=== PATIENT | female | born 1985 | race Caucasian/White ===

== ENCOUNTER 2018-08-05 08:51 | Emergency (ER) | payer MEDICAID ==
[~2018-08-05] VITALS: Ht 162.6 cm; Wt 78.6 kg
[~2018-08-05 08:51] MED LIST: ONDA4TAB12 PO; ONDA4TAB6 PO; PHEN-716 PO; TRAZ-91 PO
[2018-08-05 09:17] LABS: URINE HCG NEGATIVE (NEG)
[2018-08-05 09:19] LABS: CLARITY,URINE CLOUDY (Clear); COLOR,URINE YELLOW (Yellow); GLUCOSE, URINE NEGATIVE (Neg); KETONES,URINE NEGATIVE (Neg); LEUKOCYTE ESTERASE ,URINE MODERATE (Neg); NITRITES, URINE POSITIVE (Neg); OCCULT BLOOD,URINE LARGE (Neg); PROTEIN,URINE NEGATIVE (Neg); UA COLLECTION TYPE CLN CATCH MIDSTREAM; UROBILINOGEN,URINE 0.2 E.U/dL (0.2-1.0)
[2018-08-05 09:27] LABS: BASOPHILS # (AUTO) 0.1 X10'3 (0-0.2); BASOPHILS % (AUTO) 0.3 % (0-1); EOSINOPHILS # (AUTO) 0.2 X10'3 (0-0.9); EOSINOPHILS % (AUTO) 1.3 % (0-6); HEMATOCRIT 41.7 % (35.0-45.0); LYMPHOCYTES # (AUTO) 1.5 X10'3 (1.1-4.8); LYMPHOCYTES % (AUTO) 8.9 % (21-51); MEAN CORPUSCULAR HEMOGLOBIN 28.5 PG (27.0-31.0); MEAN CORPUSCULAR HGB CONC 33.5 % (33.0-36.5); MEAN CORPUSCULAR VOLUME 85.1 FL (78-98); MEAN PLATELET VOLUME 8.1 FL (7.4-10.4); MONOCYTES # (AUTO) 0.8 X10'3 (0-0.9); MONOCYTES % (AUTO) 4.5 % (2-12); NEUTROPHILS # (AUTO) 14.8 X10'3 (1.8-7.7); PLATELET COUNT 485 X10'3 (140-440); RED BLOOD COUNT 4.91 X10'6 (4.20-5.60); WHITE BLOOD COUNT 17.4 X10'3 (4.5-11.0)
[2018-08-05 09:29] LABS: PROTHROMBIN TIME 10.5 SECONDS (9.0-12.0)
[2018-08-05 09:29] LABS: SQUAMOUS EPITHELIAL CELL,UR MANY /LPF (FEW)
[2018-08-05 09:30] LABS: BACTERIA,URINE 3+ /HPF (Neg); WBC,URINE 20-30 /HPF (0-4)
[2018-08-05 09:35] LABS: ALANINE AMINOTRANSFERASE 42 U/L (12-78); ALBUMIN 3.1 G/DL (3.4-5.0); ALBUMIN/GLOBULIN RATIO 0.6 (1.1-1.5); ALKALINE PHOSPHATASE 217 IU/L (46-116); ANION GAP 10 (8-16); ASPARTATE AMINO TRANSFERASE 19 U/L (10-37); BILIRUBIN,TOTAL 0.4 MG/DL (0.1-1.0); BLOOD UREA NITROGEN 11 MG/DL (7-18); BUN/CREATININE RATIO 13.6 (6.6-38.0); CALCIUM 8.9 MG/DL (8.5-10.1); CHLORIDE 101 MMOL/L (99-107); CREATININE 0.81 MG/DL (0.40-0.90); GLUCOSE 92 MG/DL (70-104); LIPASE 110 U/L (73-393); POTASSIUM 4.1 MMOL/L (3.5-5.1); SODIUM 137 MMOL/L (135-145); TOTAL CARBON DIOXIDE 26.1 MMOL/L (24-32); TOTAL PROTEIN 8.4 G/DL (6.4-8.2); eGFR 81 ML/MIN
[2018-08-05] MEDS ORDERED: ketorolac trometh inj. 60 MG/2 ML VIAL IM ONE (09:35)
[2018-08-05] MEDS ORDERED: ketorolac trometh. 30mg/ml inj. IV ONE (09:40)
[2018-08-05] MEDS ORDERED: CefTRIAXone/D5W-Rocephin 1gm 50 ML IV ONE (09:40)
[2018-08-05] MEDS ORDERED: normal saline 1000ml 1,000 ML IV ONE (09:55)
[2018-08-05] MEDS ORDERED: ondansetron/PF 4mg/2ml inj IV ONE (10:25)
[2018-08-05] MEDS ORDERED: morphine 4 MG/ML inj SYRINge IM ONE (10:25)
[2018-08-05 10:50] VITALS: BP 105/72
[2018-08-05] MEDS ORDERED: HYDROcodone/acetaminophen 5mg/325mg tablet PO ONE (11:30)
[2018-08-05] MEDS ORDERED: CEPH500C2 PO (11:31)
[2018-08-05] MEDS ORDERED: ONDA4TAB9 SL (11:31)
[2018-08-05] MEDS ORDERED: ACET-3067 PO (11:31)
== END 2018-08-05 12:00 | disposition home or self-care (01) ==
LOC: ER 08:51
DX: O86.21 Infection of kidney following delivery (principal); G89.29 Other chronic pain; Z90.49 Acquired absence of other specified parts of digestive tract; Z98.890 Other specified postprocedural states; Z88.8 Allergy status to other drugs, medicaments and biological substances; Z79.2 Long term (current) use of antibiotics; Z79.899 Other long term (current) drug therapy
CPT/HCPCS: 36415; 74176; 80053; 81001; 81025; 83690; 85025; 85610; 96365; 96366; 96372; 96375; 99285; J0696; J1885; J2270; J2405; J7030

== ENCOUNTER 2019-12-15 09:35 | Emergency (ER) | payer MEDICAID ==
[~2019-12-15] VITALS: Ht 162.6 cm; Wt 61.5 kg
[2019-12-15 10:13] LABS: BASOPHILS % (AUTO) 0.3 % (0-1); EOSINOPHILS # (AUTO) 0.1 X10'3 (0-0.9); EOSINOPHILS % (AUTO) 2.6 % (0-6); HEMATOCRIT 42.2 % (35.0-45.0); HEMOGLOBIN 14.4 g/dl (12.0-16.0); LYMPHOCYTES # (AUTO) 0.4 X10'3 (1.1-4.8); LYMPHOCYTES % (AUTO) 10.3 % (21-51); MEAN CORPUSCULAR HEMOGLOBIN 30.5 PG (27.0-31.0); MEAN CORPUSCULAR HGB CONC 34.1 g/dL (33.0-36.5); MEAN CORPUSCULAR VOLUME 89.3 FL (78-98); MEAN PLATELET VOLUME 9.4 FL (7.4-10.4); MONOCYTES # (AUTO) 0.7 X10'3 (0-0.9); MONOCYTES % (AUTO) 17.1 % (2-12); NEUTROPHILS # (AUTO) 2.9 X10'3 (1.8-7.7); NEUTROPHILS % (AUTO) 69.7 % (42-75); PLATELET COUNT 145 X10'3 (140-440); RED BLOOD COUNT 4.72 X10'6 (4.20-5.60); RED CELL DISTRIBUTION WIDTH 12.4 % (11.5-14.5); WHITE BLOOD COUNT 4.2 X10'3 (4.5-11.0)
[2019-12-15 10:14] LABS: CLARITY,URINE SLIGHTLY CLOUDY (Clear); COLOR,URINE YELLOW (Yellow); GLUCOSE, URINE NEGATIVE (Neg); KETONES,URINE NEGATIVE (Neg); LEUKOCYTE ESTERASE ,URINE SMALL (Neg); NITRITES, URINE NEGATIVE (Neg); OCCULT BLOOD,URINE NEGATIVE (Neg); PROTEIN,URINE NEGATIVE (Neg); UA COLLECTION TYPE CLN CATCH MIDSTREAM; UROBILINOGEN,URINE 0.2 E.U/dL (0.2-1.0)
[2019-12-15 10:15] LABS: URINE HCG NEGATIVE (NEG)
[2019-12-15 10:25] LABS: ALANINE AMINOTRANSFERASE 25 U/L (12-78); ALBUMIN/GLOBULIN RATIO 1.2 (1.1-1.5); ALKALINE PHOSPHATASE 95 IU/L (46-116); ANION GAP 9 (8-16); ASPARTATE AMINO TRANSFERASE 17 U/L (10-37); BILIRUBIN,TOTAL 0.2 MG/DL (0.1-1.0); BLOOD UREA NITROGEN 5 MG/DL (7-18); BUN/CREATININE RATIO 7.1 (6.6-38.0); CHLORIDE 105 MMOL/L (99-107); GLUCOSE 98 MG/DL (70-104); LIPASE 108 U/L (73-393); MUCUS STRANDS FEW /LPF (Neg); POTASSIUM 4.1 MMOL/L (3.5-5.1); SODIUM 138 MMOL/L (135-145); SQUAMOUS EPITHELIAL CELL,UR MANY /LPF (FEW); TOTAL PROTEIN 7.4 G/DL (6.4-8.2); eGFR > 90 ML/MIN
[2019-12-15 10:26] LABS: BACTERIA,URINE 2+ /HPF (Neg); RBC,URINE 0-2 /HPF (0-2)
[2019-12-15] MEDS ORDERED: ondansetron/PF 4mg/2ml inj IV ONE (10:40)
[2019-12-15] MEDS ORDERED: morphine 4 MG/ML inj SYRINge IV ONE (10:40)
[2019-12-15] MEDS ORDERED: normal saline 1000ml 1,000 ML IV ONE (10:40)
[2019-12-15 10:45] LABS: TOTAL CELLS COUNTED 100
[2019-12-15 10:46] LABS: LARGE PLATELETS FEW; PLATELET ESTIMATE NORMAL
--- NOTE | 2019-12-15 11:02 | NUR ---
ATTEMPTING IV AT THE BEDSIDE
[2019-12-15] MEDS ORDERED: iohexol 300mg/ml 100ml inj. ONE (11:04)
--- NOTE | 2019-12-15 11:17 | NUR ---
PATIENT WENT TO CT
[2019-12-15 13:35] VITALS: BP 107/66
== END 2019-12-15 13:37 | disposition home or self-care (01) ==
LOC: ER 09:36
DX: K59.00 Constipation, unspecified (principal); R10.31 Right lower quadrant pain; R50.9 Fever, unspecified; G89.29 Other chronic pain; Z87.442 Personal history of urinary calculi; Z90.49 Acquired absence of other specified parts of digestive tract; Z98.890 Other specified postprocedural states; Z88.8 Allergy status to other drugs, medicaments and biological substances; Z79.899 Other long term (current) drug therapy
CPT/HCPCS: 36415; 74177; 80053; 81001; 81025; 83690; 85025; 96374; 96375; 99284; J2270; J2405; J7030; Q9967

== ENCOUNTER 2020-05-18 17:41 | Emergency (ER) | payer MEDICAID ==
[~2020-05-18] VITALS: Ht 162.6 cm; Wt 65.0 kg
[2020-05-18 18:19] LABS: URINE HCG NEGATIVE (NEG)
[2020-05-18 18:20] LABS: CLARITY,URINE CLOUDY (Clear); COLOR,URINE YELLOW (Yellow); GLUCOSE, URINE NEGATIVE (Neg); KETONES,URINE TRACE mg/dl (Neg); LEUKOCYTE ESTERASE ,URINE NEGATIVE (Neg); NITRITES, URINE NEGATIVE (Neg); OCCULT BLOOD,URINE NEGATIVE (Neg); PROTEIN,URINE NEGATIVE (Neg); UA COLLECTION TYPE CLN CATCH MIDSTREAM
[2020-05-18] MEDS ORDERED: ketorolac tromethamine 15mg/ml inj. IV ONE (18:20)
[2020-05-18] MEDS ORDERED: ondansetron/PF 4mg/2ml inj IV ONE (18:20)
[2020-05-18] MEDS ORDERED: normal saline 1000ML IV soln IVB ONE (18:20)
[2020-05-18 18:30] LABS: SQUAMOUS EPITHELIAL CELL,UR MANY /LPF (FEW)
[2020-05-18 18:31] LABS: BACTERIA,URINE 2+ /HPF (Neg); RBC,URINE 0-2 /HPF (0-2); WBC,URINE 0-4 /HPF (0-4)
[2020-05-18 18:40] LABS: BASOPHILS % (AUTO) 0.5 % (0-1); EOSINOPHILS % (AUTO) 0.5 % (0-6); HEMATOCRIT 40.4 % (35.0-45.0); HEMOGLOBIN 13.5 g/dl (12.0-16.0); MEAN CORPUSCULAR HGB CONC 33.5 g/dL (33.0-36.5); MEAN CORPUSCULAR VOLUME 92.6 FL (78-98); MEAN PLATELET VOLUME 9.7 FL (7.4-10.4); MONOCYTES # (AUTO) 0.3 X10'3 (0-0.9); MONOCYTES % (AUTO) 4.5 % (2-12); NEUTROPHILS # (AUTO) 5.1 X10'3 (1.8-7.7); NEUTROPHILS % (AUTO) 67.5 % (42-75); PLATELET COUNT 184 X10'3 (140-440); RED BLOOD COUNT 4.37 X10'6 (4.20-5.60); RED CELL DISTRIBUTION WIDTH 13.9 % (11.5-14.5); WHITE BLOOD COUNT 7.6 X10'3 (4.5-11.0)
[2020-05-18 18:54] LABS: ALANINE AMINOTRANSFERASE 17 U/L (12-78); ALBUMIN 3.8 G/DL (3.4-5.0); ALKALINE PHOSPHATASE 92 IU/L (46-116); ANION GAP 10 (8-16); ASPARTATE AMINO TRANSFERASE 16 U/L (10-37); BILIRUBIN,TOTAL 0.4 MG/DL (0.1-1.0); BLOOD UREA NITROGEN 8 MG/DL (7-18); BUN/CREATININE RATIO 9.9 (6.6-38.0); CALCIUM 8.8 MG/DL (8.5-10.1); CHLORIDE 104 MMOL/L (99-107); CREATININE 0.81 MG/DL (0.40-0.90); GLUCOSE 102 MG/DL (70-104); POTASSIUM 3.5 MMOL/L (3.5-5.1); SODIUM 139 MMOL/L (135-145); TOTAL CARBON DIOXIDE 25.2 MMOL/L (24-32); TOTAL PROTEIN 7.5 G/DL (6.4-8.2); eGFR 80 ML/MIN
[2020-05-18] MEDS ORDERED: morphine 2 MG/ML inj. syringe IV PRN (19:15)
[2020-05-18] MEDS ORDERED: morphine 4 MG/ML inj SYRINge IV ONE (20:20)
[2020-05-18] MEDS ORDERED: HYDR-4383 PO (21:14)
[2020-05-18 21:28] VITALS: BP 103/67
== END 2020-05-18 21:56 | disposition home or self-care (01) ==
LOC: ER 17:41
DX: R10.32 Left lower quadrant pain (principal); G89.29 Other chronic pain; Z88.8 Allergy status to other drugs, medicaments and biological substances; Z79.899 Other long term (current) drug therapy
CPT/HCPCS: 36415; 76700; 76856; 80053; 81001; 81025; 85025; 93976; 96374; 96375; 99285; J1885; J2270; J2405; J7030; 96376

== ENCOUNTER 2021-06-04 11:54 | Inpatient (IN) | payer MEDICAID ==
[~2021-06-04] VITALS: Ht 162.6 cm; Wt 55.0 kg
[~2021-06-04 11:54] MED LIST changes: +HYDR-4383 PO
[2021-06-04 13:09] LABS: URINE HCG NEGATIVE (NEG)
[2021-06-04 13:26] LABS: CLARITY,URINE CLOUDY (Clear); COLOR,URINE STRAW (Yellow); GLUCOSE, URINE NEGATIVE (Neg); KETONES,URINE NEGATIVE (Neg); LEUKOCYTE ESTERASE ,URINE SMALL (Neg); NITRITES, URINE POSITIVE (Neg); OCCULT BLOOD,URINE TRACE-INTACT (Neg); PROTEIN,URINE TRACE mg/dl (Neg)
[2021-06-04 13:32] LABS: UA COLLECTION TYPE CLN CATCH MIDSTREAM
[2021-06-04 13:36] LABS: SQUAMOUS EPITHELIAL CELL,UR MANY /LPF (FEW)
[2021-06-04 13:37] LABS: MUCUS STRANDS MODERATE /LPF (Neg)
[2021-06-04 13:38] LABS: TRANSITIONAL EPI CELLS,URINE MODERATE /HPF
[2021-06-04 13:39] LABS: BACTERIA,URINE 4+ /HPF (Neg)
[2021-06-04 13:41] LABS: RBC,URINE 0-2 /HPF (0-2); WBC CLUMPS,URINE FEW /HPF (NEGATIVE)
--- NOTE | 2021-06-04 13:45 | NUR ---
urine rejected for culture.
[2021-06-04] MEDS ORDERED: acetaminophen 325mg tablet PO STA (14:31)
[2021-06-04] MEDS ORDERED: CefTRIAXone 2gm/D5W 50ml BAG 50 ML IV ONE (14:35)
[2021-06-04] MEDS ORDERED: normal saline 1000ML IV soln IV ONE (14:35)
[2021-06-04] MEDS ORDERED: ondansetron/PF 4mg/2ml inj IV ONE ×2 (14:35→19:35)
[2021-06-04 15:10] LABS: EOSINOPHILS % (AUTO) 0.1 % (0-6); NEUTROPHILS # (AUTO) 13.5 X10'3 (1.8-7.7); NEUTROPHILS % (AUTO) 82.9 % (42-75)
[2021-06-04 15:11] LABS: BASOPHILS # (AUTO) 0.1 X10'3 (0-0.2); BASOPHILS % (AUTO) 0.3 % (0-1); HEMATOCRIT 38.3 % (35.0-45.0); LYMPHOCYTES # (AUTO) 1.2 X10'3 (1.1-4.8); LYMPHOCYTES % (AUTO) 7.4 % (21-51); MEAN CORPUSCULAR HEMOGLOBIN 30.4 PG (27.0-31.0); MEAN CORPUSCULAR HGB CONC 33.8 g/dL (33.0-36.5); MEAN CORPUSCULAR VOLUME 89.9 FL (78-98); MEAN PLATELET VOLUME 9.8 FL (7.4-10.4); MONOCYTES # (AUTO) 1.5 X10'3 (0-0.9); MONOCYTES % (AUTO) 9.3 % (2-12); PLATELET COUNT 185 X10'3 (140-440); RED BLOOD COUNT 4.27 X10'6 (4.20-5.60); WHITE BLOOD COUNT 16.3 X10'3 (4.5-11.0)
[2021-06-04 15:27] LABS: ALANINE AMINOTRANSFERASE 15 U/L (12-78); ALBUMIN 3.4 G/DL (3.4-5.0); ALBUMIN/GLOBULIN RATIO 0.8 (1.1-1.5); ALKALINE PHOSPHATASE 85 IU/L (46-116); ANION GAP 12 (8-16); ASPARTATE AMINO TRANSFERASE 10 U/L (10-37); BILIRUBIN,TOTAL 0.5 MG/DL (0.1-1.0); BLOOD UREA NITROGEN 7 MG/DL (7-18); BUN/CREATININE RATIO 10.1 (6.6-38.0); CALCIUM 8.7 MG/DL (8.5-10.1); CHLORIDE 102 MMOL/L (99-107); CREATININE 0.69 MG/DL (0.40-0.90); GLUCOSE 89 MG/DL (70-104); MAGNESIUM 1.8 MG/DL (1.5-2.4); POTASSIUM 3.1 MMOL/L (3.5-5.1); SODIUM 139 MMOL/L (135-145); TOTAL CARBON DIOXIDE 25.5 MMOL/L (24-32); TOTAL PROTEIN 7.6 G/DL (6.4-8.2); eGFR > 90 ML/MIN
[2021-06-04] MEDS: morphine 4 MG/ML inj SYRINge IV PRN ×4 (15:31→23:41)
[2021-06-04] MEDS ORDERED: POTASSIUM BICARB 20meq eff tab 20 MEQ TABLET.EFF PO ONE (17:25)
[2021-06-04] MEDS ORDERED: ALBU8HFA PO (18:21)
--- NOTE | 2021-06-04 18:36 | NUR ---
Pt requeting to eat, denies nausea, per MD Puente ok to eat. Meal tray provided.
[2021-06-04] MEDS ORDERED: ondansetron 4mg rapidly disintigrating tab PO PRN (20:45)
[2021-06-04] MEDS ORDERED: diphenhydrAMINE 50 mg/ml inj IV PRN (20:45)
[2021-06-04] MEDS ORDERED: magnesium hydroxide 30ml (MOM) UD suspension PO PRN (20:45)
[2021-06-04] MEDS ORDERED: diphenhydrAMINE 25mg capsule PO PRN (20:45)
[2021-06-04] MEDS ORDERED: acetaminophen 325mg tablet PO PRN (20:45)
[2021-06-04] MEDS ORDERED: morphine 2 MG/ML inj. syringe IV PRN (20:45)
[2021-06-04] MEDS ORDERED: mag hydrox/Alum hydrox/simeth 30ml oral suspension PO PRN (20:45)
[2021-06-04] MEDS ORDERED: bisacodyl 10mg suppository rectal RC PRN (20:45)
[2021-06-04] MEDS ORDERED: HYDROcodone/acetaminophen 5mg/325mg tablet PO PRN (20:45)
[2021-06-04] MEDS ORDERED: acetaminophen 650mg rectal suppository RC PRN (20:45)
[2021-06-04] MEDS ORDERED: potassium Cl 20 mEq SR tablet PO PRN ×2 (20:55)
[2021-06-04] MEDS: acetaminophen 325mg tablet PO PRN (20:59)
[2021-06-04] MEDS: dextrose 5%-1/2 normal saline 1,000 ML IV SCH (21:19)
[2021-06-04 21:22] LABS: CREATINE KINASE 38 U/L (26-192); LIPASE 89 U/L (73-393); PHOSPHORUS 3.8 MG/DL (2.3-4.5)
[2021-06-04 21:27] LABS: PARTIAL THROMBOPLASTIN TIME 38 SECONDS (22-32)
[2021-06-04] MEDS: K, MAG and/or Phos replacement - Verify level? MC SCH (21:45)
--- NOTE | 2021-06-04 22:31 | NUR ---
pt laying R. lateral, bp as noted, temp re-assessed at 102 oral, pt. requesting more applesauce and would like to sleep. RN notified
[2021-06-04] MEDS ORDERED: acetaminophen 1,000mg/100ml IV 100 ML IV ONE (22:45)
[2021-06-04] MEDS ORDERED: acetaminophen 1,000mg/100ml IV 50 ML IV ONE (23:20)
--- NOTE | 2021-06-04 23:32 | NUR ---
pt eating jello, 2 apple sauce, 2 orange juice and drinking 500 ml water past 3 hours. Pt urinate 400 ml urine yellow clear
[2021-06-05 00:30] LABS: URINE AMPHETAMINE SCREEN NEGATIVE (Neg); URINE BARBITUATE SCREEN NEGATIVE (Neg); URINE BENZODIAZEPINES SCREEN NEGATIVE (Neg); URINE CANNABINOID SCREEN NEGATIVE (Neg); URINE COCAINE SCREEN NEGATIVE (Neg); URINE METHADONE SCREEN NEGATIVE (Neg); URINE OPIATE SCREEN POSITIVE (Neg); URINE PHENCYCLIDINE SCREEN NEGATIVE (Neg)
--- NOTE | 2021-06-05 01:06 | NUR ---
Md Morris called and notified BP 83/49. Vrbal order LR 500ml bolus then recheck BP, if BP below 90/60, finish the 1L bag
[2021-06-05] MEDS ORDERED: ringers solution, lactated 500ml IV solution IV ONE (01:15)
--- NOTE | 2021-06-05 01:35 | NUR ---
pt output urine 800ml
[2021-06-05] MEDS: morphine 4 MG/ML inj SYRINge IV PRN ×2 (03:08→05:56)
--- NOTE | 2021-06-05 05:50 | NUR ---
PT IN 08/19 PAIN, REQUESTING PAIN MEDICAITON. PER LABS K OF 3.1 WILL START REPLACEMENT PER PROTOCOL.
[2021-06-05] MEDS: ondansetron/PF 4mg/2ml inj IV PRN ×2 (05:56→21:09)
[2021-06-05 07:42] LABS: BASOPHILS % (AUTO) 0.3 % (0-1); EOSINOPHILS # (AUTO) 0.1 X10'3 (0-0.9); EOSINOPHILS % (AUTO) 0.5 % (0-6); HEMATOCRIT 31.3 % (35.0-45.0); HEMOGLOBIN 10.4 g/dl (12.0-16.0); LYMPHOCYTES # (AUTO) 1.2 X10'3 (1.1-4.8); LYMPHOCYTES % (AUTO) 10.1 % (21-51); MEAN CORPUSCULAR HEMOGLOBIN 30.4 PG (27.0-31.0); MEAN CORPUSCULAR HGB CONC 33.1 g/dL (33.0-36.5); MEAN CORPUSCULAR VOLUME 91.9 FL (78-98); MEAN PLATELET VOLUME 9.7 FL (7.4-10.4); MONOCYTES # (AUTO) 1.7 X10'3 (0-0.9); MONOCYTES % (AUTO) 14.6 % (2-12); NEUTROPHILS # (AUTO) 8.8 X10'3 (1.8-7.7); NEUTROPHILS % (AUTO) 74.5 % (42-75); PLATELET COUNT 129 X10'3 (140-440); RED BLOOD COUNT 3.41 X10'6 (4.20-5.60); RED CELL DISTRIBUTION WIDTH 14.2 % (11.5-14.5); WHITE BLOOD COUNT 11.8 X10'3 (4.5-11.0)
[2021-06-05 07:55] LABS: ALANINE AMINOTRANSFERASE 20 U/L (12-78); ALBUMIN 2.4 G/DL (3.4-5.0); ALBUMIN/GLOBULIN RATIO 0.7 (1.1-1.5); ALKALINE PHOSPHATASE 129 IU/L (46-116); ANION GAP 9 (8-16); ASPARTATE AMINO TRANSFERASE 15 U/L (10-37); BILIRUBIN,TOTAL 0.4 MG/DL (0.1-1.0); BLOOD UREA NITROGEN 4 MG/DL (7-18); BUN/CREATININE RATIO 6.2 (6.6-38.0); CALCIUM 7.7 MG/DL (8.5-10.1); CHLORIDE 106 MMOL/L (99-107); CREATININE 0.65 MG/DL (0.40-0.90); GLUCOSE 119 MG/DL (70-104); POTASSIUM 3.7 MMOL/L (3.5-5.1); SODIUM 139 MMOL/L (135-145); TOTAL CARBON DIOXIDE 23.6 MMOL/L (24-32); TOTAL PROTEIN 5.9 G/DL (6.4-8.2); eGFR > 90 ML/MIN
[2021-06-05] MEDS: K, MAG and/or Phos replacement - Verify level? MC SCH (08:00)
[2021-06-05] MEDS: heparin, porcine 5000 units/ml vial SQ SCH ×2 (08:00→19:14)
[2021-06-05 09:00] VITALS: BP 96/61
[2021-06-05] MEDS: nicotine 21mg patch - 24 hr TD SCH (09:40)
[2021-06-05] MEDS: HYDROcodone/acetaminophen 10/325mg tab PO PRN ×3 (09:40→21:10)
[2021-06-05] MEDS: docusate sod 100mg capsule PO SCH ×2 (09:41→19:14)
[2021-06-05] MEDS: pantoprazole 40mg Tablet.DR PO SCH (09:41)
[2021-06-05] MEDS: dextrose 5%-1/2 normal saline 1,000 ML IV SCH ×2 (09:41→17:48)
[2021-06-05 12:03] VITALS: BP 98/55
[2021-06-05] MEDS: HYDROmorphone inj. 0.5 MG/0.5 ML DISP.SYRIN IV PRN ×3 (13:54→23:47)
[2021-06-05] MEDS: CefTRIAXone/D5W-Rocephin 1gm 50 ML IV SCH (14:50)
[2021-06-05 18:00] VITALS: BP 109/60
--- NOTE | 2021-06-05 18:00 | NUR ---
Patient in room [facility]. I have received report from KALEB Bond and had the opportunity to ask questions and assume patient care.
[2021-06-05] MEDS: temazepam 15mg capsule PO PRN ×2 (21:13→23:47)
[2021-06-05 23:54] VITALS: BP 93/63
[2021-06-06] MEDS: dextrose 5%-1/2 normal saline 1,000 ML IV SCH ×3 (03:05→22:40)
[2021-06-06] MEDS: HYDROmorphone inj. 0.5 MG/0.5 ML DISP.SYRIN IV PRN ×4 (04:54→22:09)
--- NOTE | 2021-06-06 05:48 | NUR ---
Per lab, CMP hemolyzed. Will come to floor to redraw.
--- NOTE | 2021-06-06 06:16 | NUR ---
Problems reprioritized. Patient report given, questions answered & plan of care reviewed with KALEB Bond.
[2021-06-06 07:03] LABS: ALANINE AMINOTRANSFERASE 46 U/L (12-78); ALBUMIN 2.1 G/DL (3.4-5.0); ALBUMIN/GLOBULIN RATIO 0.6 (1.1-1.5); ALKALINE PHOSPHATASE 142 IU/L (46-116); ANION GAP 8 (8-16); ASPARTATE AMINO TRANSFERASE 33 U/L (10-37); BILIRUBIN,TOTAL 0.4 MG/DL (0.1-1.0); BLOOD UREA NITROGEN 5 MG/DL (7-18); BUN/CREATININE RATIO 8.3 (6.6-38.0); CALCIUM 7.6 MG/DL (8.5-10.1); CHLORIDE 108 MMOL/L (99-107); GLUCOSE 122 MG/DL (70-104); POTASSIUM 3.7 MMOL/L (3.5-5.1); SODIUM 141 MMOL/L (135-145); TOTAL CARBON DIOXIDE 24.9 MMOL/L (24-32); TOTAL PROTEIN 5.6 G/DL (6.4-8.2); eGFR > 90 ML/MIN
[2021-06-06] MEDS: nicotine 21mg patch - 24 hr TD SCH (07:21)
[2021-06-06] MEDS: docusate sod 100mg capsule PO SCH ×2 (07:22→20:09)
[2021-06-06] MEDS: heparin, porcine 5000 units/ml vial SQ SCH ×2 (07:22→20:00)
[2021-06-06] MEDS: HYDROcodone/acetaminophen 10/325mg tab PO PRN ×3 (07:22→19:11)
[2021-06-06] MEDS: pantoprazole 40mg Tablet.DR PO SCH (07:23)
[2021-06-06 07:38] VITALS: BP 88/49
[2021-06-06 09:44] LABS: BASOPHILS % (AUTO) 0.5 % (0-1); EOSINOPHILS # (AUTO) 0.2 X10'3 (0-0.9); EOSINOPHILS % (AUTO) 2.4 % (0-6); HEMATOCRIT 30.2 % (35.0-45.0); HEMOGLOBIN 10.1 g/dl (12.0-16.0); LYMPHOCYTES # (AUTO) 2.2 X10'3 (1.1-4.8); LYMPHOCYTES % (AUTO) 26.3 % (21-51); MEAN CORPUSCULAR HEMOGLOBIN 29.9 PG (27.0-31.0); MEAN CORPUSCULAR HGB CONC 33.4 g/dL (33.0-36.5); MEAN CORPUSCULAR VOLUME 89.5 FL (78-98); MONOCYTES % (AUTO) 11.3 % (2-12); NEUTROPHILS % (AUTO) 59.5 % (42-75); PLATELET COUNT 128 X10'3 (140-440); RED BLOOD COUNT 3.37 X10'6 (4.20-5.60); RED CELL DISTRIBUTION WIDTH 14.3 % (11.5-14.5); WHITE BLOOD COUNT 8.5 X10'3 (4.5-11.0)
[2021-06-06 11:00] VITALS: BP 110/69
[2021-06-06 12:31] VITALS: BP 110/69
[2021-06-06] MEDS: CefTRIAXone/D5W-Rocephin 1gm 50 ML IV SCH (14:36)
[2021-06-06] MEDS: acetaminophen 325mg tablet PO PRN (16:08)
[2021-06-06 18:00] VITALS: BP 110/56
[2021-06-06] MEDS: lactobacillus rhamnosus 10,000 MMU CELLS/CAPSULE PO SCH (20:09)
[2021-06-06] MEDS: temazepam 15mg capsule PO PRN (22:40)
[2021-06-06 23:00] VITALS: BP 107/64
[2021-06-07] MEDS: HYDROmorphone inj. 0.5 MG/0.5 ML DISP.SYRIN IV PRN ×4 (04:49→19:41)
[2021-06-07 05:59] LABS: BASOPHILS % (AUTO) 0.3 % (0-1); EOSINOPHILS # (AUTO) 0.2 X10'3 (0-0.9); EOSINOPHILS % (AUTO) 2.8 % (0-6); HEMATOCRIT 31.6 % (35.0-45.0); HEMOGLOBIN 10.5 g/dl (12.0-16.0); LYMPHOCYTES # (AUTO) 2.4 X10'3 (1.1-4.8); MEAN CORPUSCULAR HEMOGLOBIN 30.6 PG (27.0-31.0); MEAN CORPUSCULAR HGB CONC 33.2 g/dL (33.0-36.5); MEAN CORPUSCULAR VOLUME 92.2 FL (78-98); MEAN PLATELET VOLUME 10.5 FL (7.4-10.4); MONOCYTES # (AUTO) 0.8 X10'3 (0-0.9); MONOCYTES % (AUTO) 9.8 % (2-12); NEUTROPHILS # (AUTO) 4.4 X10'3 (1.8-7.7); NEUTROPHILS % (AUTO) 56.1 % (42-75); PLATELET COUNT 140 X10'3 (140-440); RED BLOOD COUNT 3.43 X10'6 (4.20-5.60); RED CELL DISTRIBUTION WIDTH 14.8 % (11.5-14.5); WHITE BLOOD COUNT 7.9 X10'3 (4.5-11.0)
[2021-06-07 06:04] LABS: ALANINE AMINOTRANSFERASE 70 U/L (12-78); ALBUMIN 2.2 G/DL (3.4-5.0); ALBUMIN/GLOBULIN RATIO 0.6 (1.1-1.5); ALKALINE PHOSPHATASE 178 IU/L (46-116); ANION GAP 9 (8-16); ASPARTATE AMINO TRANSFERASE 48 U/L (10-37); BILIRUBIN,TOTAL 0.3 MG/DL (0.1-1.0); BLOOD UREA NITROGEN 6 MG/DL (7-18); BUN/CREATININE RATIO 10.9 (6.6-38.0); CALCIUM 8.2 MG/DL (8.5-10.1); CHLORIDE 106 MMOL/L (99-107); CREATININE 0.55 MG/DL (0.40-0.90); GLUCOSE 89 MG/DL (70-104); POTASSIUM 3.6 MMOL/L (3.5-5.1); SODIUM 142 MMOL/L (135-145); TOTAL CARBON DIOXIDE 27.2 MMOL/L (24-32); TOTAL PROTEIN 5.9 G/DL (6.4-8.2); eGFR > 90 ML/MIN
[2021-06-07 07:00] VITALS: BP 96/61
[2021-06-07] MEDS: nicotine 21mg patch - 24 hr TD SCH ×2 (08:00→10:14)
[2021-06-07] MEDS: ondansetron/PF 4mg/2ml inj IV PRN ×2 (08:37→19:37)
[2021-06-07] MEDS: docusate sod 100mg capsule PO SCH ×2 (08:38→19:32)
[2021-06-07] MEDS: heparin, porcine 5000 units/ml vial SQ SCH ×2 (08:38→19:34)
[2021-06-07] MEDS: lactobacillus rhamnosus 10,000 MMU CELLS/CAPSULE PO SCH ×2 (08:38→19:32)
[2021-06-07] MEDS: pantoprazole 40mg Tablet.DR PO SCH (08:47)
[2021-06-07] MEDS: morphine 2 MG/ML inj. syringe IV PRN ×2 (08:50→13:05)
[2021-06-07] MEDS: dextrose 5%-1/2 normal saline 1,000 ML IV SCH ×2 (10:10→21:01)
[2021-06-07 11:00] VITALS: BP 115/64
[2021-06-07] MEDS: acetaminophen 325mg tablet PO PRN (13:05)
[2021-06-07] MEDS: CefTRIAXone/D5W-Rocephin 1gm 50 ML IV SCH (14:24)
--- NOTE | 2021-06-07 16:09 | NUR ---
Dr. Melendrez paged regarding patient request for Ibuprofen for migraine. Patient states she takes Ibuprofen at home and it is effective for headaches.
[2021-06-07] MEDS: ibuprofen 200mg tablet PO PRN (16:30)
[2021-06-07 18:00] VITALS: BP 91/56
--- NOTE | 2021-06-07 18:00 | NUR ---
Problems reprioritized. Patient report given to Justen MANUEL, questions answered & plan of care reviewed with .
--- NOTE | 2021-06-07 18:29 | NUR ---
Patient in room [facility]. I have received report from KALEB Siddiqui and had the opportunity to ask questions and assume patient care.
[2021-06-07] MEDS: temazepam 15mg capsule PO PRN (21:00)
[2021-06-07] MEDS: HYDROcodone/acetaminophen 10/325mg tab PO PRN (22:30)
[2021-06-08] VITALS: BP 98/55
[2021-06-08] MEDS: HYDROmorphone inj. 0.5 MG/0.5 ML DISP.SYRIN IV PRN ×2 (00:51→08:11)
[2021-06-08] MEDS: dextrose 5%-1/2 normal saline 1,000 ML IV SCH ×2 (04:45→08:24)
[2021-06-08 06:00] LABS: BASOPHILS % (AUTO) 0.6 % (0-1); EOSINOPHILS # (AUTO) 0.3 X10'3 (0-0.9); EOSINOPHILS % (AUTO) 4.3 % (0-6); HEMATOCRIT 32.9 % (35.0-45.0); HEMOGLOBIN 10.7 g/dl (12.0-16.0); LYMPHOCYTES # (AUTO) 2.9 X10'3 (1.1-4.8); MEAN CORPUSCULAR HEMOGLOBIN 30.1 PG (27.0-31.0); MEAN CORPUSCULAR HGB CONC 32.6 g/dL (33.0-36.5); MEAN CORPUSCULAR VOLUME 92.2 FL (78-98); MEAN PLATELET VOLUME 10.7 FL (7.4-10.4); MONOCYTES # (AUTO) 0.5 X10'3 (0-0.9); MONOCYTES % (AUTO) 7.6 % (2-12); NEUTROPHILS # (AUTO) 3.3 X10'3 (1.8-7.7); NEUTROPHILS % (AUTO) 46.5 % (42-75); PLATELET COUNT 160 X10'3 (140-440); RED BLOOD COUNT 3.57 X10'6 (4.20-5.60); RED CELL DISTRIBUTION WIDTH 14.8 % (11.5-14.5); WHITE BLOOD COUNT 7.2 X10'3 (4.5-11.0)
--- NOTE | 2021-06-08 06:10 | NUR ---
Patient in room [facility]. I have received report from KALEB Campuzano and had the opportunity to ask questions and assume patient care.
[2021-06-08 06:30] VITALS: BP 111/65
[2021-06-08 06:33] LABS: ALANINE AMINOTRANSFERASE 67 U/L (12-78); ALBUMIN 2.2 G/DL (3.4-5.0); ALBUMIN/GLOBULIN RATIO 0.6 (1.1-1.5); ALKALINE PHOSPHATASE 197 IU/L (46-116); ANION GAP 8 (8-16); ASPARTATE AMINO TRANSFERASE 28 U/L (10-37); BILIRUBIN,TOTAL 0.3 MG/DL (0.1-1.0); BLOOD UREA NITROGEN 8 MG/DL (7-18); BUN/CREATININE RATIO 13.3 (6.6-38.0); CALCIUM 8.2 MG/DL (8.5-10.1); CHLORIDE 108 MMOL/L (99-107); GLUCOSE 98 MG/DL (70-104); POTASSIUM 3.7 MMOL/L (3.5-5.1); SODIUM 143 MMOL/L (135-145); TOTAL CARBON DIOXIDE 27.4 MMOL/L (24-32); TOTAL PROTEIN 5.9 G/DL (6.4-8.2); eGFR > 90 ML/MIN
[2021-06-08] MEDS: pantoprazole 40mg Tablet.DR PO SCH (08:08)
[2021-06-08] MEDS: lactobacillus rhamnosus 10,000 MMU CELLS/CAPSULE PO SCH (08:08)
[2021-06-08] MEDS: heparin, porcine 5000 units/ml vial SQ SCH (08:08)
[2021-06-08] MEDS: nicotine 21mg patch - 24 hr TD SCH (08:08)
[2021-06-08] MEDS: docusate sod 100mg capsule PO SCH (08:08)
[2021-06-08] MEDS: ibuprofen 200mg tablet PO PRN (08:23)
[2021-06-08] MEDS ORDERED: HYDR-3965 PO ×3 (08:40→09:06)
[2021-06-08] MEDS ORDERED: LEVO500T89 PO (08:40)
[2021-06-08] MEDS ORDERED: ONDA4TAB6 PO (08:40)
[2021-06-08] MEDS ORDERED: SUMAtriptan 25 MG tablet PO ONE (10:00)
[2021-06-08] MEDS: HYDROcodone/acetaminophen 10/325mg tab PO PRN (10:00)
[2021-06-08 11:00] VITALS: BP 110/65
--- NOTE | 2021-06-08 11:40 | NUR ---
DC inst provided to pt. IV DC'd, tip intact. All belongings sent w/pt. WC to vehicle.
== END 2021-06-08 11:40 | disposition home or self-care (01) | DRG 463 ==
LOC: ER 11:54 → ED HOLD 20:44 → SUR 3N 06-05 08:06
PROVIDERS: ADMIT Family Medicine; ATTEND Family Medicine
DX: N10 Acute pyelonephritis (principal); E43 Unspecified severe protein-calorie malnutrition; K56.7 Ileus, unspecified; E86.0 Dehydration; E86.1 Hypovolemia; E87.6 Hypokalemia; F17.210 Nicotine dependence, cigarettes, uncomplicated; R16.0 Hepatomegaly, not elsewhere classified; G89.4 Chronic pain syndrome; J44.9 Chronic obstructive pulmonary disease, unspecified; Z79.4 Long term (current) use of insulin; Z87.440 Personal history of urinary (tract) infections; Z87.442 Personal history of urinary calculi; Z90.49 Acquired absence of other specified parts of digestive tract; Z88.8 Allergy status to other drugs, medicaments and biological substances; Z68.20 Body mass index [BMI] 20.0-20.9, adult
CPT/HCPCS: 36415; 74176; 80053; 80305; 81001; 81025; 82550; 83605; 83690; 83735; 84100; 84145; 84439; 84443; 84480; 85025; 85610; 85730; 87040; 87081; 96365; 96375; 96376; 99285; G0378; J0131; J0696; J1170; J1644; J2270; J2405; J7030; J7120